=== PATIENT | female | born 1935 | race Caucasian/White ===

== ENCOUNTER 2018-07-25 07:54 | Emergency (ER) | payer MEDICARE, MEDICAID ==
[~2018-07-25] VITALS: Ht 160 cm; Wt 70.0 kg
[2018-07-25 07:56] VITALS: BP 127/56
[2018-07-25] MEDS ORDERED: TETRACAINE 0.5% 5 ML OPHTHALMIC DROPS LEFTEYE ONE (09:00)
[2018-07-25] MEDS ORDERED: proparacaine 0.5% ophthalmic drops 15ml LEFTEYE ONE (09:05)
[2018-07-25] MEDS ORDERED: ERYT1OIN6 LEFTEYE (09:27)
[2018-07-25] MEDS ORDERED: VALA10002 PO (09:27)
[2018-07-25] MEDS ORDERED: HYDR28CR14 TOP (09:27)
[2018-07-25] MEDS ORDERED: TRIF7.5D5 EXT (10:03)
== END 2018-07-25 10:23 | disposition home or self-care (01) ==
LOC: ER 07:56
DX: B02.33 Zoster keratitis (principal)
CPT/HCPCS: 99283